=== PATIENT | male | born 1970 | race Caucasian/White ===

== ENCOUNTER 2016-07-15 17:35 | Emergency (ER) | payer OTHER ==
[2016-07-15 17:49] VITALS: BP 155/92; PULSE 53; RESP 18; TEMP 97.9; O2SAT 96
--- NOTE | 2016-07-15 18:29 | UCPHY ---
H & P Time Seen by Provider: 07/15/16 18:23 Patient Type: New HPI/ROS: Chief complaint: [sore throat with some pain in the right ear ] HPI: [ previously healthy 46-year-old male. No known strep exposure. Complains of pain in the right side of his throat more so than the left. Furthermore he notes some right hip node that is more large left side as well as some pain in the right ear that his hearing has unchanged. Normal coordination balance. No fluid drainage.] ROS: Constitutional - no fevers or chills. Eyes - no discharge, or injection ENT - see above Respiratory - No Shortness of breath, phlegm, wheezing or pleuritic chest pain. The cough is dry Musculoskeletal - no joint or muscle pain. Integument - no rashes. Neurological - no headache, numbness, tingling, or paresthesias. No focal motor weakness. Immunological - some anterior adenopathy right more so than left but no posterior 10 point ROS otherwise negative Smoking Status: Never smoked Physical Exam: Gen: Well developed, well nourished. Nontoxic. HEENT: Normocephalic. Ears: TMs are clear. Hearing normal. Eyes: PERRL. No conjunctival injection or pallor. no jaundice. Nose: No nasal discharge. Sinuses are nontender. Throat: Membranes are moist. Oropharynx has erythematous on the tonsils little more swollen on the right the left as well as right anterior adenopathy more so than the left. Normal phonation. Lungs: Good air entry into both lungs. No rales rhonchi or wheezes. No air hunger. No respiratory distress. Skin: Good color, without pallor. There is no diaphoresis. Skin is warm and dry , without diaphoresis. Intact without rashes Constitutional: Initial Vital Signs Temperature (C) 36.6 C 07/15/16 17:46 Heart Rate 53 L 07/15/16 17:46 Respiratory Rate 18 07/15/16 17:46 Blood Pressure 155/92 H 07/15/16 17:46 O2 Sat (%) 96 07/15/16 17:46 O2 Delivery Mode Room Air Allergies/Adverse Reactions: No Known Allergies Allergy (Unverified 07/15/16 17:45) Home Medications: Medication Instructions Recorded Amoxicillin 500 mg PO TID 10 Days 07/15/16 Insulin Regular Human 07/15/16 Medical Decision Making ED Course/Re-evaluation: His strep no rapid is negative. Though he has distinct adenopathy the right and some erythema there is no fever. The center criteria is pretty low. Most likely not strep related though final result tomorrow. He will be contacted if indeed was positive. Given the constellation of findings of the adenopathy on the right and there erythema right in the right ear pain the normal TM I feel that the right ear pain is from radiation from the throat. Differential Diagnosis: Diagnostic considerations include, but are not limited to, the following: URI, sinusitis, pharyngitis, otitis media, pneumonia, allergy, influenza. - Data Points Laboratory Results: 07/15/16 07/15/16 Unknown 17:40 Group A Strep Screen NEGATIVE (NEGATIVE) Group A Strep DNA Pending Departure - Departure Disposition: Home, Routine, Self-Care Clinical Impression: Otalgia of right ear Pharyngitis Qualifiers: Pharyngitis/tonsillitis etiology: unspecified etiology Qualified Code(s): J02.9 - Acute pharyngitis, unspecified Condition: Good Instructions: Pharyngitis (ED) Additional Instructions: Fill the prescription for the amoxicillin only if your years no better in 5 days or recall tomorrow and your final strep is positive Recheck in 7-10 days if not all better Referrals: Julissa Gar MD [Medical Doctor] - As per Instructions Prescriptions: Amoxicillin 500 mg PO TID 10 Days - PQRS PQRS Measurement: NA
== END 2016-07-15 18:37 | disposition home or self-care (01) ==
LOC: CED 17:35
DX: H92.01 Otalgia, right ear (principal); J02.9 Acute pharyngitis, unspecified
CPT/HCPCS: 87880-PO; 99203-PO; G0463-PO